=== PATIENT | male | born 1985 | race African-American/Black ===

== ENCOUNTER 2021-05-22 13:51 | Emergency (ER) | payer BC ==
[2021-05-22 14:04] VITALS: BP 123/78; PULSE 70; TEMP 97.5; BMI 29.4
== END 2021-05-22 15:17 | disposition home or self-care (01) ==
LOC: JERFT 13:51
DX: S62.91XA Unspecified fracture of right hand, initial encounter for closed fracture (principal); W22.8XXA Striking against or struck by other objects, initial encounter
CPT/HCPCS: 73130-TC-RT-FY; 99283-25